=== PATIENT | female | born 1990 | race Caucasian/White ===

== ENCOUNTER → 2017-08-04 | Outpatient (REF) | payer BC ==
[2017-08-06 14:14] LABS: HPV HYBRID CAPTURE II Negative (Negative)
== END ==
LOC: M LAB REF 13:57
DX: Z12.4 Encounter for screening for malignant neoplasm of cervix (principal)

== ENCOUNTER → 2017-08-05 | Outpatient (REF) | payer BC ==
[2017-08-05 13:50] LABS: BASO % 0.3 % (0.0-1.0); EOS # 0.1 10^3/uL (0.0-0.50); EOS % 1.3 % (0.0-3.0); HEMATOCRIT 44.5 % (36.0-47.0); HEMOGLOBIN 13.9 g/dl (12.0-16.0); IMMATURE GRANULOCYTE % 0.3 % (0-0); MEAN CORPUSCULAR HEMOGLOBIN 26.9 pg (27.0-33.0); MEAN CORPUSCULAR HGB CONC 31.2 g/dl (32.0-36.5); MEAN CORPUSCULAR VOLUME 86.2 fl (80.0-96.0); MONO # 0.5 10^3/uL (0.0-0.8); MONO % 6.3 % (0.0-5.0); NEUTROPHILS # 4.8 10^3/uL (1.8-7.7); NEUTROPHILS % 64.8 % (36.0-66.0); PLATELET COUNT, AUTOMATED 266 10^3/uL (150-450); RED BLOOD COUNT 5.16 10^6/uL (4.00-5.40); RED CELL DISTRIBUTION WIDTH 12.3 % (11.5-14.5); WHITE BLOOD COUNT 7.5 10^3/uL (4.0-10.0)
[2017-08-05 13:52] LABS: ALBUMIN 4.1 GM/DL (3.2-5.2); ALBUMIN/GLOBULIN RATIO 1.28 (1.00-1.93); ALKALINE PHOSPHATASE 63 U/L (45-117); ALT/SGPT 14 U/L (12-78); ANION GAP 6 MEQ/L (8-16); AST/SGOT 11 U/L (7-37); BILIRUBIN,TOTAL 0.8 MG/DL (0.2-1.0); BLOOD UREA NITROGEN 9 MG/DL (7-18); CALCIUM LEVEL 8.6 MG/DL (8.5-10.1); CARBON DIOXIDE LEVEL 28 MEQ/L (21-32); CHLORIDE LEVEL 107 MEQ/L (98-107); CHOLESTEROL LEVEL 166 MG/DL (<200); GLOMERULAR FILTRATION RATE > 60.0 (>60); GLUCOSE, FASTING 83 MG/DL (70-100); HDL CHOLESTEROL 50 MG/DL (>40); NON-HDL-C 116 MG/DL; POTASSIUM SERUM 4.4 MEQ/L (3.5-5.1); SODIUM LEVEL 141 MEQ/L (136-145); TOTAL PROTEIN 7.3 GM/DL (6.4-8.2); TRIGLYCERIDES LEVEL 100 MG/DL (<150)
== END ==
LOC: M LABDRAW1 10:48
DX: R07.9 Chest pain, unspecified (principal)
CPT/HCPCS: 84443

== ENCOUNTER → 2017-11-24 | Outpatient (REF) | payer BC | LOC: M LAB REF 13:58 | DX: N76.0 Acute vaginitis (principal) | CPT/HCPCS: 87070 ==

== ENCOUNTER → 2018-05-26 | Outpatient (REF) | payer BC ==
[2018-05-26 18:30] LABS: APPEARANCE, URINE CLEAR (CLEAR); BACTERIA, URINE AUTO NEGATIVE (NEGATIVE); BILIRUBIN, URINE AUTO NEGATIVE (NEGATIVE); BLOOD, URINE BLOOD NEGATIVE (NEGATIVE); COLOR, URINE STRAW (YELLOW); GLUCOSE, URINE (UA) AUTO NEGATIVE (NEGATIVE); KETONE, URINE AUTO NEGATIVE (NEGATIVE); LEUKOCYTE ESTERASE, URINE AUTO NEGATIVE (NEGATIVE); NITRITE, URINE AUTO NEGATIVE (NEGATIVE); PROTEIN, URINE AUTO NEGATIVE (NEGATIVE); RBC, URINE AUTO 0 /HPF (0-3); SPECIFIC GRAVITY URINE AUTO 1.005 (1.002-1.035); SQUAMOUS EPITHELIAL CELL UR AU 0 /HPF (0-6); UROBILINOGEN, URINE AUTO 0.2 mg/dL (0.0-2.0); WBC, URINE AUTO 0 /HPF (0-3)
== END ==
LOC: M LAB REF 16:44
DX: N39.0 Urinary tract infection, site not specified (principal)
CPT/HCPCS: 81001

== ENCOUNTER 2019-03-11 11:34 | Emergency (ER) | payer BC ==
[~2019-03-11] VITALS: Ht 157.5 cm; Wt 70.0 kg
[~2019-03-11 11:34] MED LIST: ANUS2.5C2 EXT; DICL50TAB PR; DOCU5LIQ PO; MILK10SU PO; PRENTAB9 PO; VICO5TAB PO; VICO5TAB16 PO
[2019-03-11 12:12] LABS: BASO % 0.3 % (0.0-1.0); EOS # 0.1 10^3/uL (0.0-0.5); EOS % 0.7 % (0.0-3.0); HEMATOCRIT 41.3 % (36.0-47.0); HEMOGLOBIN 13.6 g/dl (12.0-15.5); LYMPH # 2.1 10^3/uL (1.5-5.0); LYMPH % 27.2 % (24.0-44.0); MEAN CORPUSCULAR HEMOGLOBIN 28.4 pg (27.0-33.0); MEAN CORPUSCULAR HGB CONC 32.9 g/dl (32.0-36.5); MEAN CORPUSCULAR VOLUME 86.2 fl (80.0-96.0); MONO # 0.4 10^3/uL (0.0-0.8); MONO % 4.9 % (0.0-5.0); NEUTROPHILS # 5.1 10^3/uL (1.5-8.5); NEUTROPHILS % 66.6 % (36.0-66.0); PLATELET COUNT, AUTOMATED 239 10^3/uL (150-450); RED BLOOD COUNT 4.79 10^6/uL (4.00-5.40); WHITE BLOOD COUNT 7.7 10^3/uL (4.0-10.0)
[2019-03-11 12:58] LABS: BLOOD UREA NITROGEN 5 MG/DL (7-18); CALCIUM LEVEL 9.2 MG/DL (8.5-10.1); CARBON DIOXIDE LEVEL 25 MEQ/L (21-32); CHLORIDE LEVEL 106 MEQ/L (98-107); CREATININE FOR GFR 0.79 MG/DL (0.55-1.30); GLOMERULAR FILTRATION RATE > 60.0 (>60); GLUCOSE, FASTING 87 MG/DL (70-100); HCG, SERUM QUANTITATIVE 19602 MIU/ML; POTASSIUM SERUM 3.9 MEQ/L (3.5-5.1); SODIUM LEVEL 139 MEQ/L (136-145)
--- NOTE | 2019-03-11 13:47 | REP ---
Clinical: Vaginal bleeding for dating and viability. Technique: Transabdominal and transvaginal first trimester obstetrical ultrasound with color Doppler evaluation. Findings: Ultrasound examination demonstrates single live early intrauterine . Gestational sac with yolk sac and pole noted. CRL of 4 mm corresponds to 6 weeks 0 days gestational age with estimated date of delivery 11/04/2019. heart rate equals 113 beats per minute. Bilateral maternal ovaries demonstrate normal vascularity without torsion. Right ovary measures 5.1 x 3.2 x 2.2 cm and includes 2.9 cm and 2.3 cm complex areas which may represent physiologic cysts are and/or corpus luteum. Left ovary measures 4.9 x 4.4 x 3.3 cm (RI 0.51) and includes 4.4 cm complex cyst possible corpus luteum. Impression: 1. Single live early intrauterine measuring 6 weeks 0 days gestational age. Complete anatomical assessment should be performed at 19-20 weeks. 2. Complex cystic areas within the bilateral maternal ovaries may represent resolving physiologic hemorrhagic cysts and corpus luteum cysts. Electronically Signed by Kian cMdonald MD 03/11/2019 01:39 P
[2019-03-11 14:17] VITALS: BP 131/75
[2019-03-11 14:26] LABS: CHLAMYDIA DNA AMPLIFICATION NEGATIVE (NEGATIVE); GC DNA AMPLIFICATION NEGATIVE (NEGATIVE)
[2019-03-11] MEDS ORDERED: FLAG500T PO (14:48)
== END 2019-03-11 15:05 | disposition home or self-care (01) ==
LOC: M ED 11:34
DX: O20.0 Threatened abortion (principal); Z3A.01 Less than 8 weeks gestation of pregnancy; Z87.891 Personal history of nicotine dependence; Z79.899 Other long term (current) drug therapy

== ENCOUNTER → 2019-04-01 | Outpatient (CLI) | payer BC ==
[~2019-04-01] MED LIST changes: +FLAG500T PO
[2019-04-01 13:44] LABS: BASO % 0.3 % (0.0-1.0); EOS % 0.3 % (0.0-3.0); HEMATOCRIT 43.1 % (36.0-47.0); HEMOGLOBIN 14.1 g/dl (12.0-15.5); LYMPH # 1.6 10^3/uL (1.5-5.0); LYMPH % 21.2 % (24.0-44.0); MEAN CORPUSCULAR HEMOGLOBIN 28.7 pg (27.0-33.0); MEAN CORPUSCULAR HGB CONC 32.7 g/dl (32.0-36.5); MEAN CORPUSCULAR VOLUME 87.8 fl (80.0-96.0); MONO # 0.3 10^3/uL (0.0-0.8); MONO % 4.4 % (0.0-5.0); NEUTROPHILS # 5.5 10^3/uL (1.5-8.5); NEUTROPHILS % 73.4 % (36.0-66.0); PLATELET COUNT, AUTOMATED 235 10^3/uL (150-450); RED BLOOD COUNT 4.91 10^6/uL (4.00-5.40); WHITE BLOOD COUNT 7.4 10^3/uL (4.0-10.0)
[2019-04-01 13:49] LABS: ALT/SGPT 24 U/L (12-78); BILIRUBIN,TOTAL 0.5 MG/DL (0.2-1.0); CREATININE FOR GFR 0.68 MG/DL (0.55-1.30); GLOMERULAR FILTRATION RATE > 60.0 (>60); LDH LACTATE DEHYDROGENASE 152 U/L (84-246); URIC ACID 2.4 MG/DL (2.6-6.0)
[2019-04-01 15:37] LABS: CHLAMYDIA DNA AMPLIFICATION NEGATIVE (NEGATIVE); GC DNA AMPLIFICATION NEGATIVE (NEGATIVE)
[2019-04-02 11:41] LABS: RUBELLA IgG QUALITATIVE IMMUNE (IMMUNE)
[2019-04-02 12:10] LABS: HEPATITIS C VIRUS ABY INDEX 0.1 INDEX (<0.8)
[2019-04-02 12:11] LABS: HIV 1&2 SCREEN CENTAUR NEGATIVE (NEGATIVE)
== END ==
LOC: M SMT 09:52
PROVIDERS: ATTEND Advanced Practice Midwife
DX: Z34.81 Encounter for supervision of other normal pregnancy, first trimester (principal); Z3A.00 Weeks of gestation of pregnancy not specified

== ENCOUNTER → 2019-06-07 | Outpatient (CLI) | payer BC ==
--- NOTE | 2019-06-07 16:07 | REP ---
Clinical: Anatomical evaluation. Comparison: 03/11/2019 . Findings: Examination demonstrates a single live intrauterine in breech presentation. motion is identified by technologist. Placenta is noted right lateral and grade zero without evidence for placenta previa or abruption. Amniotic fluid volume is normal. Cervix measures 4.8 cm in length and appears closed. No evidence for nuchal cord. Left ovary includes 3.6 cm complex cyst with echogenic component raising the possibility of dermoid. 1.3 cm posterior uterine fibroid noted. Gestational age by LMP 18 weeks 3 days with ZBIGNIEW 11/05/2019 . Gestational age by current measurements 19 weeks 2 days with ZBIGNIEW 10/30/2019 . FHR equals 160 beats per minute. BPD 4.4 cm 19 weeks 2 days HC 16.1 cm 19 weeks 0 days AC 14.2 cm 19 weeks 4 days FL 3.1 cm 19 weeks 3 days HL 2.9 cm 19 weeks 3 days HC/AC ratio 1.13 Estimated weight 294 grams ( 90th percentile). Anatomical assessment demonstrates normal structures including cranium, cavum, cerebellum/posterior fossa, diaphragm, stomach, cord insertion/three-vessel cord, kidneys/bladder, spine, and extremities. Limited evaluation of the facial features, lungs, heart/ventricular outflow tracts along with heterogeneous appearance to the bilateral cord plexus. Impression: 1. Single live intrauterine in breech presentation demonstrating appropriate interval growth. 2. Anatomical limitations as noted above warrant followup. 3. Complex left ovarian cyst possibly representing dermoid. 1.3 cm posterior uterine fibroid. Electronically Signed by Kian Mcdonald MD 06/07/2019 03:59 P
== END ==
LOC: M RAD 14:46
PROVIDERS: ATTEND Advanced Practice Midwife
DX: Z34.82 Encounter for supervision of other normal pregnancy, second trimester (principal); Z3A.19 19 weeks gestation of pregnancy

== ENCOUNTER → 2019-07-05 | Outpatient (CLI) | payer BC ==
--- NOTE | 2019-07-05 16:11 | REP ---
Clinical: Anatomical evaluation. Comparison: 06/07/2019 . Findings: Examination demonstrates a single live intrauterine in cephalic presentation. motion is identified by technologist. Placenta is noted posterior and grade zero without evidence for placenta previa or abruption. Amniotic fluid volume is normal. Cervix measures 4.9 cm in length and appears closed. No evidence for nuchal cord. Gestational age by LMP 22 weeks 3 days with ZBIGNIEW 11/05/2019 . Gestational age by current measurements 23 weeks 2 days with ZBIGNIEW 10/30/2019 . FHR equals 139 beats per minute. Estimated weight 587 grams ( 77 percentile). Anatomical assessment demonstrates normal structures including cranium, choroid plexus, cavum, cerebellum/posterior fossa, facial features, diaphragm, stomach, cord insertion/three-vessel cord, kidneys/bladder, spine, and extremities. Impression: Single live intrauterine in cephalic presentation demonstrating appropriate interval growth. Continued limited evaluation of the lungs and heart/ventricular outflow tracts noted. Remainder of the anatomical assessment is normal. Electronically Signed by Kian Mcdonald MD 07/05/2019 04:03 P
== END ==
LOC: M RAD 15:05
PROVIDERS: ATTEND Advanced Practice Midwife
DX: Z34.82 Encounter for supervision of other normal pregnancy, second trimester (principal)

== ENCOUNTER → 2019-07-29 | Outpatient (CLI) | payer BC ==
--- NOTE | 2019-07-30 04:24 | REP ---
Clinical: Anatomical evaluation. Comparison: 07/05/2019 . Findings: Examination demonstrates a single live intrauterine in breech presentation. motion is identified by technologist. Placenta is noted right/fundal and grade I without evidence for placenta previa or abruption. Amniotic fluid volume is normal. Cervix measures 4.3 cm in length and appears closed. No evidence for nuchal cord. Gestational age by LMP 25 weeks 6 days with ZBIGNIEW 11/05/2019 . Gestational age by current measurements 26 weeks 2 days with ZBIGNIEW 11/02/2019 . FHR equals 160 beats per minute. Estimated weight 974 grams ( 65th percentile). Anatomical assessment demonstrates normal structures including cranium, choroid plexus, cavum, cerebellum/posterior fossa, facial features, lungs, four-chamber heart/ventricular outflow tracts, diaphragm, stomach, cord insertion/three-vessel cord, kidneys/bladder, spine, and extremities. Impression: 1. Single live intrauterine in breech presentation demonstrating appropriate interval growth. In conjunction with prior examination anatomical assessment is complete and normal. 2. Technologist describes the anterior uterine wall at the area of prior section scar which cannot be definitively measured.
== END ==
LOC: M WHC 10:26
PROVIDERS: ATTEND Advanced Practice Midwife
DX: O34.211 Maternal care for low transverse scar from previous cesarean delivery (principal); Z3A.26 26 weeks gestation of pregnancy

== ENCOUNTER → 2019-08-26 | Outpatient (CLI) | payer BC ==
[2019-08-26 16:30] LABS: BASO % 0.2 % (0.0-1.0); EOS # 0.1 10^3/uL (0.0-0.5); EOS % 0.6 % (0.0-3.0); HEMATOCRIT 37.5 % (36.0-47.0); LYMPH # 1.7 10^3/uL (1.5-5.0); LYMPH % 16.7 % (24.0-44.0); MEAN CORPUSCULAR HEMOGLOBIN 29.1 pg (27.0-33.0); MEAN CORPUSCULAR VOLUME 90.8 fl (80.0-96.0); MONO # 0.6 10^3/uL (0.0-0.8); NEUTROPHILS # 7.5 10^3/uL (1.5-8.5); NEUTROPHILS % 75.7 % (36.0-66.0); PLATELET COUNT, AUTOMATED 176 10^3/uL (150-450); RED BLOOD COUNT 4.13 10^6/uL (4.00-5.40); WHITE BLOOD COUNT 9.9 10^3/uL (4.0-10.0)
== END ==
LOC: M WUC 12:49
PROVIDERS: ATTEND Advanced Practice Midwife
DX: O34.211 Maternal care for low transverse scar from previous cesarean delivery (principal); Z3A.00 Weeks of gestation of pregnancy not specified

== ENCOUNTER → 2019-09-13 | Outpatient (CLI) | payer BC ==
--- NOTE | 2019-09-15 07:17 | REP ---
Clinical: Evaluate uterine wall at prior incision site Comparison: 07/29/2019 . Findings: Examination demonstrates a single live intrauterine in cephalic presentation. motion is identified by technologist. Placenta is noted fundal and grade I I without evidence for placenta previa or abruption. Amniotic fluid volume is normal. Cervix measures 4.3 cm in length and appears closed. No evidence for nuchal cord. Gestational age by LMP 32 weeks 3 days with ZBIGNIEW 11/05/2019 . Gestational age by current measurements 33 weeks 0 day with ZBIGNIEW 11/01/2019 . FHR equals 138 beats per minute. Estimated weight 2190 grams ( 64th percentile). Amniotic fluid index: 17.7 cm (8.4 - 24.3). Anterior uterine wall at the site of prior section scar appears thinned at approximately 3-4 mm thickness. Impression: 1. Single live intrauterine in cephalic presentation demonstrating appropriate estimated weight. 2. Anterior uterine wall at the site of prior section measuring 3-4 mm thickness.
== END ==
LOC: M WHC 12:15
PROVIDERS: ATTEND Advanced Practice Midwife
DX: O34.219 Maternal care for unspecified type scar from previous cesarean delivery (principal); Z3A.32 32 weeks gestation of pregnancy

== ENCOUNTER → 2019-10-01 | Outpatient (REF) | payer BC ==
[~2019-10-01] MED LIST changes: +ASPI81TA85 PO
[2019-10-01 14:06] LABS: ALT/SGPT 15 U/L (12-78); BILIRUBIN,TOTAL 0.5 MG/DL (0.2-1.0); CREATININE FOR GFR 0.64 MG/DL (0.55-1.30); GLOMERULAR FILTRATION RATE > 60.0 (>60); HEMATOCRIT 40.9 % (36.0-47.0); HEMOGLOBIN 13.6 g/dl (12.0-15.5); LDH LACTATE DEHYDROGENASE 160 U/L (84-246); MEAN CORPUSCULAR HEMOGLOBIN 30.1 pg (27.0-33.0); MEAN CORPUSCULAR HGB CONC 33.3 g/dl (32.0-36.5); MEAN CORPUSCULAR VOLUME 90.5 fl (80.0-96.0); PLATELET COUNT, AUTOMATED 158 10^3/uL (150-450); RED BLOOD COUNT 4.52 10^6/uL (4.00-5.40); URIC ACID 3.4 MG/DL (2.6-6.0)
[2019-10-01 14:24] LABS: CREATININE,RANDOM URINE 22.1 MG/DL
== END ==
LOC: M PLALAB 10:58
PROVIDERS: ATTEND Advanced Practice Midwife
DX: O34.593 Maternal care for other abnormalities of gravid uterus, third trimester (principal)

== ENCOUNTER 2019-10-06 08:59 | Outpatient (CLI) | payer BC ==
[~2019-10-06] VITALS: Ht 157.5 cm; Wt 80.6 kg
[~2019-10-06 08:59] MED LIST changes: -CALC500C15 PO; -MAPA325T2 PO
[2019-10-06 09:19] VITALS: BP 152/95
[2019-10-06] MEDS ORDERED: BETAMETHASONE SOLUSPAN 6MG/ML INJ 5ML (J0702) IM SCH (09:30)
[2019-10-06 09:35] VITALS: BP 132/92
[2019-10-06] MEDS ORDERED: PRENTAB9 PO (09:40)
[2019-10-06] MEDS ORDERED: CALC500C15 PO (09:40)
[2019-10-06 09:54] VITALS: BP 133/95
--- NOTE | 2019-10-06 10:23 | IPN ---
DATE OF SERVICE: 10/06/2019 Joann is a 29-year-old, 3, para 1-1-0-2. She is at 35-5/7 weeks gestation with expected date of confinement (EDC) of 11/05/2019 based on last menstrual period and confirmed by first trimester ultrasound. She presents to labor and delivery today following a followup appointment for a care visit in office. She was noted to have repeat elevated blood pressure and diagnosed with preeclampsia with a spot urine of 0.59. She does deny headache, visual disturbances, epigastric pain and right upper quadrant discomfort. She denies any painful regular contractions as well as leakage of fluid and vaginal bleeding. The fetus has been active. care was initiated at [facility] in the first trimester. course complicated by history of prior section x2, preeclampsia with a history of eclamptic seizure in 2007, cystic fibrosis carrier, and today's diagnosis of preeclampsia. OBSTETRICAL HISTORY: In 04/2008, she underwent a section for a 5 pound 5 ounce male after having an eclamptic seizure. In 04/2012, she had section for a 7 pound 7 ounce female as a repeat. OBSTETRIC LABS: Normal. PAST MEDICAL HISTORY: Hypertension. Eclamptic seizure during . SURGERIES: section. SOCIAL HISTORY: The patient is single however the father of the baby is involved. She is a nonsmoker. She denies alcohol and drug use. She does not have any history of sexually transmitted infections. She denies history of abuse - physical, sexual and emotional. ALLERGIES: No known allergies. CURRENT MEDICATIONS: vitamins OBJECTIVE: Upon arrival to labor and delivery, blood pressure 152/95, pulse 90, repeat blood pressure 132/92, and pulse 92. The heart rate is 145 with moderate variability, positive accelerations, no decelerations. There is an occasional contraction. Sterile Vaginal Exam: Deferred. She did undergo a biophysical profile in the office performed by Dr. Sergey Trimble and reported BPP of 8 out of 8. ASSESSMENT: Intrauterine at 35-5/7 weeks. heart rate category one. Preeclampsia. PLAN: NST today. Betamethasone injection for lung maturity. She is to return in 24 hours for a repeat betamethasone #2. She is scheduled for repeat section on 10/09/2019 and it has been reviewed with her pending her blood pressures and her symptoms, the section may be moved to a closer date. She has had her questions answered and is agreeable with the plan of care. This plan was made in consult with Dr. Sergey Trimble.
[2019-10-07] MEDS ORDERED: MAPA325T2 PO (09:44)
== END 2019-10-06 09:59 | disposition home or self-care (01) ==
LOC: M LDO 08:59
PROVIDERS: ATTEND Advanced Practice Midwife
DX: O14.93 Unspecified pre-eclampsia, third trimester (principal); Z3A.35 35 weeks gestation of pregnancy
CPT/HCPCS: 96372; G0378; J0702

== ENCOUNTER → 2019-10-06 | Outpatient (REF) | payer BC ==
[~2019-10-06] MED LIST changes: +CALC500C15 PO; +MAPA325T2 PO
== END ==
LOC: M SFHCWAGY 10:18
PROVIDERS: ATTEND Obstetrics & Gynecology
DX: Z34.93 Encounter for supervision of normal pregnancy, unspecified, third trimester (principal); Z3A.36 36 weeks gestation of pregnancy

== ENCOUNTER 2019-10-07 09:28 | Outpatient (CLI) | payer BC, MEDICAID ==
[~2019-10-07] VITALS: Ht 157.5 cm; Wt 80.4 kg
[~2019-10-07 09:28] MED LIST changes: +CALC500C15 PO
[2019-10-07 09:41] VITALS: BP 144/88
[2019-10-07] MEDS ORDERED: MAPA325T2 PO (09:44)
[2019-10-07] MEDS ORDERED: BETAMETHASONE SOLUSPAN 6MG/ML INJ 5ML (J0702) IM ONE (10:00)
--- NOTE | 2019-10-07 11:09 | IPN ---
DATE OF SERVICE: 10/07/2019 29-year-old, (G) 2, para (P) 2 female at 35 weeks gestation who presents for administration of steroids to enhance lung maturity. The indication is diagnosis of preeclampsia made previously. She denies symptoms. OBJECTIVE: Blood pressure 140/88. Pulse 84. She is in no apparent distress. Head and Neck Exam: Normal. Lungs clear. Heart regular. Abdomen nontender, gravid. heart tones Category 1. Contractions irregular, mild. Extremities nontender. ASSESSMENT: 29-year-old, G3, P2 female at 35 and 0/7 weeks gestation with diagnosis of preeclampsia. PLAN: The patient was admitted for second dose of betamethasone today. She will followup in the office as scheduled. She is to report worsening symptoms.
== END 2019-10-07 10:27 | disposition home or self-care (01) ==
LOC: M LDO 09:28
PROVIDERS: ATTEND Specialist
DX: O14.03 Mild to moderate pre-eclampsia, third trimester (principal); Z3A.35 35 weeks gestation of pregnancy
CPT/HCPCS: 96372; G0378; J0702

== ENCOUNTER 2019-10-15 05:19 | Inpatient (IN) | payer BC, MEDICAID ==
[2019-10-15] VITALS (9 sets, daily range): BP systolic 128–141; BP diastolic 74–95
[~2019-10-15] VITALS: Ht 157.5 cm; Wt 79.6 kg
[~2019-10-15 05:19] MED LIST changes: +MAPA325T2 PO
[2019-10-15] MEDS ORDERED: ceFAZolin SOD 2 GM in IV 1 EA IV ONE ×2 (06:00→07:30)
[2019-10-15 06:30] LABS: HEMATOCRIT 39.6 % (36.0-47.0); HEMOGLOBIN 13.2 g/dl (12.0-15.5); MEAN CORPUSCULAR HEMOGLOBIN 29.3 pg (27.0-33.0); MEAN CORPUSCULAR HGB CONC 33.3 g/dl (32.0-36.5); PLATELET COUNT, AUTOMATED 150 10^3/uL (150-450); WHITE BLOOD COUNT 10.6 10^3/uL (4.0-10.0)
[2019-10-15] MEDS ORDERED: OXYTOCIN INJ 10 UNITS/ML VIAL (J2590) As Ordered ONE (07:05)
[2019-10-15] MEDS ORDERED: MORPHINE PRES-FREE INJ 10 MG/10 ML VIAL (J2274) As Ordered ONE (07:06)
[2019-10-15] MEDS ORDERED: LACTATED RINGER'S 1000 ML IV STA (07:16)
[2019-10-15] MEDS ORDERED: BICITRA 30ML SOLN UDC As Ordered ONE (07:24)
[2019-10-15] MEDS ORDERED: BICITRA 30ML SOLN UDC PO ONE (08:00)
[2019-10-15] MEDS ORDERED: LR 1,000 ML IV SCH ×2 (08:00→09:15)
[2019-10-15] MEDS ORDERED: dexameTHASONE 4 MG/ML 1ML VIAL (J1100 PER 1MG) As Ordered ONE (08:05)
[2019-10-15] MEDS ORDERED: PHENYLephrine HCL 500 MCG/5 ML (100MCG/ML) SYRINGE (J2370) As Ordered ONE (08:05)
[2019-10-15] MEDS ORDERED: ONDANSETRON 4MG/2ML VIAL (J2405) As Ordered ONE (08:05)
[2019-10-15] MEDS ORDERED: KETOROLAC 60 MG/2 ML VIAL (J1885 PER 15MG) As Ordered ONE (08:05)
[2019-10-15] MEDS ORDERED: OXYTOCIN DRIP 30 UNITS in IV 1 EA IV SCH (08:57)
[2019-10-15] MEDS: PRENATAL VITAMINS CHEWABLE TABLET PO SCH (09:00)
[2019-10-15] MEDS ORDERED: PROMETHAZINE 25 MG TAB PO PRN (09:00)
[2019-10-15] MEDS ORDERED: ONDANSETRON 4 MG TAB (S0181) PO PRN (09:00)
[2019-10-15] MEDS ORDERED: ACETAMINOPHEN 500 MG TAB PO PRN (09:00)
[2019-10-15] MEDS ORDERED: RHOGAM 300 MCG (1500 IU) INJ (J2790) IM SCH (09:00)
[2019-10-15] MEDS ORDERED: MEASLES,MUMPS,RUBELLA VACCINE INJ (MMR-II) (90707) SC SCH (09:00)
[2019-10-15] MEDS ORDERED: PERCOCET PO (09:08)
[2019-10-15] MEDS ORDERED: DOCU100C16 PO (09:08)
[2019-10-15] MEDS ORDERED: IBUP80TA PO (09:08)
[2019-10-15] MEDS ORDERED: METOCLOPRAMIDE INJ 10MG/2ML VIAL (J2765 PER 1) IV PRN ×2 (09:15→10:00)
[2019-10-15] MEDS ORDERED: MEPERIDINE INJ 25 MG/ML VIAL (J2175) IV PRN (09:15)
[2019-10-15] MEDS ORDERED: PERCOCET 5MG/325MG TAB PO PRN (09:15)
[2019-10-15] MEDS ORDERED: ONDANSETRON 4MG/2ML VIAL (J2405) IV PRN ×2 (09:15→10:00)
[2019-10-15] MEDS ORDERED: fentaNYL 100 MCG/2 ML INJECTION (J3010) IV PRN (09:15)
[2019-10-15] MEDS ORDERED: OXYTOCIN 30 UNITS IN 0.9% NaCl 500ML IV BAG (J2590) As Ordered ONE (09:29)
[2019-10-15] MEDS ORDERED: NALBUPHINE HCL 10 MG/ML AMP (J2300) IV PRN (10:00)
[2019-10-15] MEDS ORDERED: NALOXONE INJ 0.4 MG/1 ML VIAL (J2310) IV PRN ×2 (10:00)
[2019-10-15] MEDS ORDERED: diphenhydrAMINE 50MG/ML VIAL (J1200) IV PRN (10:00)
[2019-10-15] MEDS: PERCOCET 5MG/325MG TAB PO PRN (12:14)
[2019-10-15] MEDS: KETOROLAC 30 MG/ML 1ML VIAL (J1885 PER 15MG) IV SCH ×2 (15:03→21:37)
[2019-10-15] MEDS: DOCUSATE SODIUM 100 MG CAP PO SCH (21:36)
[2019-10-16 02:00] VITALS: BP 113/67
[2019-10-16] MEDS: KETOROLAC 30 MG/ML 1ML VIAL (J1885 PER 15MG) IV SCH (03:31)
[2019-10-16 06:00] VITALS: BP 118/64
[2019-10-16 06:52] LABS: HEMATOCRIT 32.6 % (36.0-47.0); MEAN CORPUSCULAR HEMOGLOBIN 30.1 pg (27.0-33.0); MEAN CORPUSCULAR HGB CONC 33.7 g/dl (32.0-36.5); MEAN CORPUSCULAR VOLUME 89.1 fl (80.0-96.0); PLATELET COUNT, AUTOMATED 145 10^3/uL (150-450); RED BLOOD COUNT 3.66 10^6/uL (4.00-5.40)
--- NOTE | 2019-10-16 07:54 | IPNPDOC ---
Text Note Date of Service The patient was seen on 10/16/19. NOTE PO #1 Feels well. Adequate pain management. Voiding VSS, afebrile, normotensive. Breasts soft, nipples intact Fundus firm, NT Dressing dry and intact Lochia rubra scant without odor PO #1 Routine care. Anticipate D/C in am VS,Fishbone, I+O VS, Fishbone, I+O Laboratory Tests 10/16/19 06:27 Vital Signs Date Time Temp Pulse Resp B/P (MAP) Pulse Ox O2 Delivery O2 Flow Rate FiO2 10/16/19 06:00 97.3 78 17 118/64 (82) 100 Room Air I&O- Last 24 Hours up to 6 AM 10/16/19 06:00 Intake Total 1524 ml Output Total 1560 ml Balance -36 ml Lashon Madrid CNM Oct 16, 2019 07:54
[2019-10-16] MEDS: PRENATAL VITAMINS CHEWABLE TABLET PO SCH (08:27)
[2019-10-16] MEDS: DOCUSATE SODIUM 100 MG CAP PO SCH ×2 (08:27→19:16)
[2019-10-16] MEDS: PERCOCET 5MG/325MG TAB PO PRN ×4 (08:28→21:03)
[2019-10-16 10:00] VITALS: BP 116/75
[2019-10-16] MEDS: IBUPROFEN 800 MG TAB PO SCH ×2 (10:55→19:16)
[2019-10-16 14:00] VITALS: BP 110/70
[2019-10-16 18:02] VITALS: BP 116/81
[2019-10-16 22:00] VITALS: BP 117/67
[2019-10-17 02:00] VITALS: BP 118/82
[2019-10-17] MEDS: IBUPROFEN 800 MG TAB PO SCH ×2 (03:29→10:41)
[2019-10-17 05:42] VITALS: BP 125/78
[2019-10-17] MEDS: PRENATAL VITAMINS CHEWABLE TABLET PO SCH (07:45)
[2019-10-17] MEDS: DOCUSATE SODIUM 100 MG CAP PO SCH (07:45)
[2019-10-17] MEDS: PERCOCET 5MG/325MG TAB PO PRN ×2 (07:46→12:46)
--- NOTE | 2019-10-17 18:15 | DSES ---
DATE OF ADMISSION: 10/15/2019 DATE OF DISCHARGE: 10/17/2019 A 29-year-old (G) 3, para (P) 2 female at 37 weeks gestation, diagnosed with preeclampsia, presents for repeat section. She has a history of two prior sections. HOSPITAL COURSE: The patient was admitted on 10/15/2019. She underwent repeat low transverse section for a 7-pound, 1-ounce , scores 9 and 9. Her postoperative course was unremarkable. She had adequate return of bladder and bowel function. Her postoperative hemoglobin was 11.0 grams/deciliter. She was deemed stable for discharge on postoperative day number two. ADMISSION DIAGNOSIS: , preeclampsia, prior (C) section times two. POSTOPERATIVE DIAGNOSIS: Delivered. PROCEDURE: Repeat low transverse section. DISPOSITION: The patient will followup with Dr. Trimble in two weeks. Instructions were reviewed.
== END 2019-10-17 13:00 | disposition home or self-care (01) | DRG 540 ==
LOC: M LDI 05:19 → M OBS 10:02
PROVIDERS: ADMIT Obstetrics & Gynecology; ATTEND Obstetrics & Gynecology
PROC: 10D00Z1 Extraction of Products of Conception, Low, Open Approach (ICD-10-PCS; principal; 2019-10-15 07:30)
DX: O34.211 Maternal care for low transverse scar from previous cesarean delivery (principal); Z3A.37 37 weeks gestation of pregnancy; O14.94 Unspecified pre-eclampsia, complicating childbirth; Z37.0 Single live birth

== ENCOUNTER → 2020-02-14 | Outpatient (REF) | payer BC, MEDICAID ==
[~2020-02-14] MED LIST changes: -ASPI81TA85 PO; +ASPI81TA86 PO; +DOCU100C16 PO; +IBUP80TA PO; -MAPA325T2 PO; +MAPA325T8 PO; +PERCOCET PO
== END ==
LOC: M SFHCWAGY 11:13
PROVIDERS: ATTEND Obstetrics & Gynecology
DX: Z12.4 Encounter for screening for malignant neoplasm of cervix (principal)

== ENCOUNTER → 2021-09-03 | Outpatient (CLI) | payer BC, MEDICAID ==
[2021-09-03 17:03] LABS: BASO % 0.3 % (0.0-1.0); EOS # 0.1 10^3/uL (0.0-0.5); EOS % 1.5 % (0.0-3.0); HEMATOCRIT 36.5 % (36.0-47.0); HEMOGLOBIN 10.9 g/dl (12.0-15.5); LYMPH # 2.5 10^3/uL (1.5-5.0); MEAN CORPUSCULAR HEMOGLOBIN 23.9 pg (27.0-33.0); MEAN CORPUSCULAR HGB CONC 29.9 g/dl (32.0-36.5); MONO # 0.4 10^3/uL (0.0-0.8); MONO % 5.8 % (2.0-8.0); NEUTROPHILS # 3.5 10^3/uL (1.5-8.5); NEUTROPHILS % 54.2 % (36.0-66.0); PLATELET COUNT, AUTOMATED 276 10^3/uL (150-450); RED BLOOD COUNT 4.56 10^6/uL (4.00-5.40); WHITE BLOOD COUNT 6.5 10^3/uL (4.0-10.0)
[2021-09-03 17:45] LABS: ALBUMIN 3.8 GM/DL (3.2-5.2); BILIRUBIN,TOTAL 0.4 MG/DL (0.2-1.0); CALCIUM LEVEL 8.3 MG/DL (8.5-10.1); CREATININE FOR GFR 1.6 MG/DL (0.55-1.30); GLOMERULAR FILTRATION RATE 39.5 (>60); POTASSIUM SERUM 3.9 MEQ/L (3.5-5.1)
== END ==
LOC: M WUC 11:50
PROVIDERS: ATTEND Nurse Practitioner Family
DX: Z00.00 Encounter for general adult medical examination without abnormal findings (principal)

== ENCOUNTER → 2021-09-26 | Outpatient (REF) | payer BC, MEDICAID ==
[2021-09-26 19:16] LABS: GC DNA AMPLIFICATION NEGATIVE (NEGATIVE)
== END ==
LOC: M LAB REF 16:48
PROVIDERS: ATTEND Nurse Practitioner Family
DX: N76.0 Acute vaginitis (principal)

== ENCOUNTER → 2022-05-09 | Outpatient (CLI) | payer BC, MEDICAID | LOC: M LABSMTC 11:36 | PROVIDERS: ATTEND Anesthesiology | DX: Z01.812 Encounter for preprocedural laboratory examination (principal); Z20.822 Contact with and (suspected) exposure to COVID-19 ==

== ENCOUNTER 2022-05-14 09:22 | Day surgery (SDC) | payer BC ==
[~2022-05-14] VITALS: Ht 157.5 cm; Wt 65.2 kg
[~2022-05-14 09:22] MED LIST changes: +AMPICILLIN SOD/SULBACTAM SOD 3 GM in D5W MINI-BAG PLUS 100 ML IV ONE; +CelecoXIB 400 MG CAP PO ONE; +INDOCYANINE GREEN 25MG VIAL (IC-GREEN) IV ONE
[2022-05-14] MEDS ORDERED: LR 1,000 ML IV SCH ×2 (09:50→15:25)
[2022-05-14] MEDS ORDERED: ONDANSETRON 4MG 2ML VIAL As Ordered ONE (12:57)
[2022-05-14] MEDS ORDERED: MIDAZOLAM INJ 2MG/2ML VIAL (J2250 PER 1MG) As Ordered ONE (12:57)
[2022-05-14] MEDS ORDERED: fentaNYL 250 MCG/5 ML INJECTION As Ordered ONE (12:57)
[2022-05-14] MEDS ORDERED: KETOROLAC 60MG 2ML VIAL As Ordered ONE (12:57)
[2022-05-14] MEDS ORDERED: propofoL 200 MG/20 ML VIAL As Ordered ONE (12:57)
[2022-05-14] MEDS ORDERED: ROCURONIUM BROMIDE 50 MG/5 ML VIAL As Ordered ONE (12:57)
[2022-05-14] MEDS ORDERED: METOCLOPRAMIDE INJ 10MG/2ML VIAL (J2765 PER 1) As Ordered ONE (12:57)
[2022-05-14] MEDS ORDERED: SUGAMMADEX SODIUM 500 MG/5 ML VIAL (BRIDION) As Ordered ONE (12:57)
[2022-05-14] MEDS ORDERED: dexameTHASONE 4 MG/ML 1ML VIAL (J1100 PER 1MG) As Ordered ONE (12:57)
[2022-05-14] MEDS ORDERED: HYDROmorphone HCL 2MG/ML 1ML VIAL As Ordered ONE (12:57)
[2022-05-14] MEDS ORDERED: LIDOCAINE 2% 100MG/5ML SDV (FOR ANES.) As Ordered ONE (12:57)
[2022-05-14] MEDS ORDERED: BUPIVACAINE HCL 0.25% 30ML VIAL As Ordered ONE (13:54)
[2022-05-14] MEDS ORDERED: LIDOCAINE 1% SDV 30ML VIAL As Ordered ONE (13:54)
[2022-05-14] MEDS ORDERED: INDOCYANINE GREEN 25MG VIAL (IC-GREEN) As Ordered ONE (13:54)
[2022-05-14] MEDS ORDERED: oxyCODONE 5MG TAB PO PRN (15:25)
[2022-05-14] MEDS ORDERED: ONDANSETRON 4MG 2ML VIAL IV PRN (15:25)
[2022-05-14] MEDS ORDERED: MORPHINE 2 MG/ML 1ML VIAL IV PRN (15:25)
[2022-05-14] MEDS ORDERED: fentaNYL 100 MCG/2 ML INJECTION IV PRN (15:25)
[2022-05-14] MEDS ORDERED: ACETAMINOPHEN TAB 650MG DOSE (2X325MG) PO PRN (16:00)
[2022-05-14] MEDS ORDERED: PERCOCET 5MG/325MG TAB PO PRN ×2 (16:05)
[2022-05-14 16:23] VITALS: BP 125/83
[2022-05-14] MEDS ORDERED: KETOROLAC 30 MG/ML 1ML VIAL IV SCH (18:00)
== END 2022-05-14 16:51 | disposition home or self-care (01) ==
LOC: M SDC 09:22
PROVIDERS: ATTEND Surgery
DX: K80.10 Calculus of gallbladder with chronic cholecystitis without obstruction (principal); F17.210 Nicotine dependence, cigarettes, uncomplicated
CPT/HCPCS: 47562; 81025; 88304; J0295; J1100; J1170; J1885; J2250; J2405; J2765; J3010; S2900

== ENCOUNTER → 2022-06-11 | Outpatient (REF) | payer BC ==
[~2022-06-11] MED LIST changes: -AMPICILLIN SOD/SULBACTAM SOD 3 GM in D5W MINI-BAG PLUS 100 ML IV ONE; -CelecoXIB 400 MG CAP PO ONE; -INDOCYANINE GREEN 25MG VIAL (IC-GREEN) IV ONE
== END ==
LOC: M LAB REF 16:51
PROVIDERS: ATTEND Internal Medicine Nephrology
DX: E83.39 Other disorders of phosphorus metabolism (principal)

== ENCOUNTER → 2022-06-14 | Outpatient (REF) | payer BC ==
[2022-06-14 18:53] LABS: CALCIUM, URINE 11.4 MG/DL
[2022-06-14 18:55] LABS: URINE PHOSPHOROUS 41.8 MG/DL
[2022-06-14 23:45] LABS: CALCIUM, 24 HOUR URINE 331.7 MG/24HR (42-353); PHOSPHOROUS 24 HR URINE 1216.3 MG/24HR (400-1300)
== END ==
LOC: M LAB REF 17:04
PROVIDERS: ATTEND Internal Medicine Nephrology
DX: E83.39 Other disorders of phosphorus metabolism (principal)

== ENCOUNTER → 2022-10-17 | Outpatient (CLI) | payer BC ==
[2022-10-17 15:00] LABS: BASO % 0.6 % (0.0-1.0); EOS # 0.1 10^3/uL (0.0-0.5); HEMATOCRIT 40.4 % (36.0-47.0); HEMOGLOBIN 12.4 g/dl (12.0-15.5); LYMPH # 1.6 10^3/uL (1.5-5.0); LYMPH % 31.7 % (24.0-44.0); MEAN CORPUSCULAR HEMOGLOBIN 25.6 pg (27.0-33.0); MEAN CORPUSCULAR HGB CONC 30.7 g/dl (32.0-36.5); MEAN CORPUSCULAR VOLUME 83.5 fl (80.0-96.0); MONO # 0.3 10^3/uL (0.0-0.8); MONO % 6.7 % (2.0-8.0); NEUTROPHILS % 58.6 % (36.0-66.0); PLATELET COUNT, AUTOMATED 231 10^3/uL (150-450); RED BLOOD COUNT 4.84 10^6/uL (4.00-5.40); WHITE BLOOD COUNT 5.1 10^3/uL (4.0-10.0)
[2022-10-17 15:05] LABS: ALBUMIN 3.8 G/DL (3.2-5.2); ALKALINE PHOSPHATASE 51 U/L (46-116); ALT/SGPT 15 U/L (7.0-40); AST/SGOT 13 U/L (<34); BILIRUBIN,TOTAL 0.5 MG/DL (0.3-1.2); BLOOD UREA NITROGEN 10 MG/DL (9-23); CALCIUM LEVEL 8.8 MG/DL (8.5-10.1); CARBON DIOXIDE LEVEL 27 MMOL/L (20-31); CHLORIDE LEVEL 105 MMOL/L (98-107); CREATININE FOR GFR 0.83 MG/DL (0.55-1.30); FERRITIN 3.9 NG/ML (7.3-270.7); GLOMERULAR FILTRATION RATE > 60.0 (>60); GLUCOSE, FASTING 85 MG/DL (60-100); IRON (FE) 41 UG/DL (50-170); PERCENT SATURATION 11.1 % (13.2-45.0); POTASSIUM SERUM 4.3 MMOL/L (3.5-5.1); SODIUM LEVEL 139 MMOL/L (136-145); THYROID PEROXIDASE ANTIBODY < 28.0 U/ML (<60.0); THYROID STIMULATING HORMONE 1.526 uIU/ML (0.55-4.78); TOTAL IRON BINDING CAPACITY 371 UG/DL (250-425); TOTAL PROTEIN 6.6 G/DL (5.7-8.2)
[2022-10-17 15:06] LABS: TOTAL 25(OH) VITAMIN D 18.7 NG/ML (20.0-100.0)
== END ==
LOC: M WUC 08:48
PROVIDERS: ATTEND Nurse Practitioner Family
DX: L65.9 Nonscarring hair loss, unspecified (principal); R53.83 Other fatigue

== ENCOUNTER → 2022-11-11 | Outpatient (CLI) | payer BC ==
[2022-11-11 18:26] LABS: PERCENT SATURATION 29.3 % (13.2-45.0)
[2022-11-11 18:28] LABS: FERRITIN 21.1 NG/ML (7.3-270.7)
[2022-11-11 18:29] LABS: TOTAL 25(OH) VITAMIN D 23.6 NG/ML (20.0-100.0)
== END ==
LOC: M WUC 12:46
PROVIDERS: ATTEND Nurse Practitioner Family
DX: D50.9 Iron deficiency anemia, unspecified (principal); E55.9 Vitamin D deficiency, unspecified

== ENCOUNTER → 2023-02-25 | Outpatient (REF) | payer BC | LOC: M LAB REF 17:18 | PROVIDERS: ATTEND Registered Nurse | DX: R30.0 Dysuria (principal) ==

== ENCOUNTER → 2023-03-03 | Outpatient (CLI) | payer BC | LOC: M WHC 14:23 | PROVIDERS: ATTEND Registered Nurse | DX: N92.0 Excessive and frequent menstruation with regular cycle (principal); R30.0 Dysuria; N83.202 Unspecified ovarian cyst, left side; D25.1 Intramural leiomyoma of uterus ==

== ENCOUNTER → 2023-05-19 | Outpatient (CLI) | payer BC ==
[2023-05-19 18:47] LABS: BASO % 0.3 % (0.0-1.0); EOS # 0.2 10^3/uL (0.0-0.5); EOS % 2.1 % (0.0-3.0); HEMATOCRIT 45.5 % (36.0-47.0); HEMOGLOBIN 14.8 g/dl (12.0-15.5); LYMPH # 2.2 10^3/uL (1.5-5.0); LYMPH % 27.9 % (24.0-44.0); MEAN CORPUSCULAR HEMOGLOBIN 29.8 pg (27.0-33.0); MEAN CORPUSCULAR HGB CONC 32.5 g/dl (32.0-36.5); MEAN CORPUSCULAR VOLUME 91.7 fl (80.0-96.0); MONO # 0.5 10^3/uL (0.0-0.8); MONO % 5.8 % (2.0-8.0); NEUTROPHILS # 5.1 10^3/uL (1.5-8.5); NEUTROPHILS % 63.5 % (36.0-66.0); PLATELET COUNT, AUTOMATED 236 10^3/uL (150-450); RED BLOOD COUNT 4.96 10^6/uL (4.00-5.40)
[2023-05-19 18:52] LABS: PERCENT SATURATION 32.7 % (13.2-45.0)
[2023-05-19 18:54] LABS: FERRITIN 26.7 NG/ML (7.3-270.7)
== END ==
LOC: M WUC 13:04
PROVIDERS: ATTEND Nurse Practitioner Family
DX: E55.9 Vitamin D deficiency, unspecified (principal); E61.1 Iron deficiency

== ENCOUNTER → 2023-11-04 | Outpatient (REF) | payer BC | LOC: M LAB REF 17:09 | PROVIDERS: ATTEND Nurse Practitioner Family | DX: J01.90 Acute sinusitis, unspecified (principal) ==

== ENCOUNTER → 2023-11-17 | Outpatient (CLI) | payer BC ==
[2023-11-17 18:27] LABS: BASO % 0.3 % (0.0-1.0); EOS # 0.1 10^3/uL (0.0-0.5); EOS % 0.7 % (0.0-3.0); HEMOGLOBIN 14.4 g/dl (12.0-15.5); LYMPH # 2.6 10^3/uL (1.5-5.0); LYMPH % 34.9 % (24.0-44.0); MEAN CORPUSCULAR HEMOGLOBIN 28.6 pg (27.0-33.0); MEAN CORPUSCULAR VOLUME 89.5 fl (80.0-96.0); MONO # 0.4 10^3/uL (0.0-0.8); MONO % 5.1 % (2.0-8.0); NEUTROPHILS # 4.4 10^3/uL (1.5-8.5); NEUTROPHILS % 58.9 % (36.0-66.0); PLATELET COUNT, AUTOMATED 273 10^3/uL (150-450); RED BLOOD COUNT 5.03 10^6/uL (4.00-5.40); WHITE BLOOD COUNT 7.4 10^3/uL (4.0-10.0)
[2023-11-17 18:55] LABS: FERRITIN 36.6 NG/ML (7.3-270.7); TOTAL 25(OH) VITAMIN D 63.2 NG/ML (20.0-100.0)
[2023-11-17 18:56] LABS: ALBUMIN 3.8 G/DL (3.2-5.2); ALKALINE PHOSPHATASE 59 U/L (46-116); ALT/SGPT 17 U/L (7.0-40); AST/SGOT 11 U/L (<34); BILIRUBIN,TOTAL 0.6 MG/DL (0.3-1.2); BLOOD UREA NITROGEN 10 MG/DL (9-23); CALCIUM LEVEL 9.2 MG/DL (8.5-10.1); CARBON DIOXIDE LEVEL 27 MMOL/L (20-31); CHLORIDE LEVEL 105 MMOL/L (98-107); CREATININE FOR GFR 0.94 MG/DL (0.55-1.30); GLOMERULAR FILTRATION RATE > 60.0 (>60); GLUCOSE, FASTING 75 MG/DL (60-100); IRON (FE) 68 UG/DL (50-170); PERCENT SATURATION 24.2 % (13.2-45.0); SODIUM LEVEL 141 MMOL/L (136-145); TOTAL IRON BINDING CAPACITY 281 UG/DL (250-425); TOTAL PROTEIN 6.7 G/DL (5.7-8.2)
== END ==
LOC: M WUC 11:35
PROVIDERS: ATTEND Nurse Practitioner Family
DX: E61.1 Iron deficiency (principal); E55.9 Vitamin D deficiency, unspecified